=== PATIENT | female | born 1950 | race Caucasian/White ===

== ENCOUNTER 2019-09-22 18:43 | Emergency (ER) | payer MEDICARE, MEDICAID ==
[~2019-09-22] VITALS: Ht 162.6 cm; Wt 82.6 kg
[2019-09-22 19:30] VITALS: BP_SYST 136
--- NOTE | 2019-09-22 22:31 | NUR ---
Pt ambulatory to bed 4 for evaluation
--- NOTE | 2019-09-22 22:45 | NUR ---
Pt brought in by family member. Pt awake, alert, oriented x4. Pt states that she had been having lowe blood sugar on and off throughout the day. Pt states that she has been eating meals with no increase in blood sugar. Pt states she is mildly fatigued, but no syncope dizziness, nausea, vomiting. Pt also denies chest pain, shortness of breath or any other medical complaint. Skin signs are warm and dry. Pt resting in ED bed comfortably, no acute distress at this time. VSS
--- NOTE | 2019-09-22 23:00 | NUR ---
ER at bedside examining patient.
[2019-09-22 23:48] LABS: HEMOGLOBIN 12.4 g/dL (12.0-16.0)
[2019-09-22 23:52] LABS: HEMATOCRIT 38.2 % (36-48); MEAN CORPUSCULAR HEMOGLOBIN 29 pg (27-31); MEAN CORPUSCULAR HGB CONC 33 % (32-36); MEAN CORPUSCULAR VOLUME 89 fL (79.0-98.0); PLATELET COUNT (AUTO) 242 K/uL (130-430); RED BLOOD CELL COUNT(AUTO) 4.28 MIL/uL (4.2-6.2); RED CELL DISTRIBUTION WIDTH 14.9 % (9.0-15.0); WHITE BLOOD COUNT (AUTO) 14.1 K/uL (4.8-10.8)
[2019-09-22 23:56] LABS: CALCIUM 8.6 mg/dL (8.4-11.0); CREATININE 0.65 mg/dL (0.55-1.30); POTASSIUM 4.3 mmol/L (3.5-5.1)
--- NOTE | 2019-09-23 | NUR ---
Pt resting in ED bed. No acute distress.
[2019-09-23 00:02] LABS: TOTAL BILIRUBIN 0.2 mg/dL (0.0-1.0)
[2019-09-23 00:31] LABS: ATYPICAL LYMPHOCYTES % 1 % (0-0); BAND % (MANUAL) 0 % (0-6); BASOPHILS % (MANUAL) 0 % (0-2); EOSINOPHILS % (MANUAL) 0 % (0-7); LYMPHOCYTES % (MANUAL) 61 % (20-46); MONOCYTES % (MANUAL) 3 % (0-11)
[2019-09-23 00:57] LABS: BILIRUBIN,URINE NEGATIVE (NEGATIVE); CLARITY/URINE CLEAR (CLEAR); COLOR,URINE YELLOW (YELLOW); GLUCOSE,URINE NEGATIVE (NEGATIVE); KETONES,URINE NEGATIVE (NEGATIVE); LEUKOCYTE ESTERASE ,URINE NEGATIVE (NEGATIVE); NITRITE, URINE NEGATIVE (NEGATIVE); PH,URINE 5.5 (5.0-8.0); PROTEIN URINE NEGATIVE (NEGATIVE); UROBILINOGEN,URINE 0.2 (0.2-1.0)
[2019-09-23 01:05] LABS: BLOOD, URINE TRACE (NEGATIVE)
[2019-09-23 01:09] LABS: BACTERIA,URINE FEW /HPF (None Seen); CALCIUM OXALATE CRYSTALS,UR 30-50 /HPF (None Seen); WBC,URINE 0-3 /HPF (0-3)
[2019-09-23 01:50] VITALS: BP_SYST 136
--- NOTE | 2019-09-23 01:50 | NUR ---
Patient given written and verbal discharge instructions and verbalizes understanding. ER MD discussed with patient the results and treatment provided. Patient in stable condition. ID arm band removed. No RX given. Patient educated on pain management and to follow up with PMD. Pain Scale 0/10. Opportunity for questions provided and answered.
== END 2019-09-23 01:50 | disposition home or self-care (01) ==
LOC: SED 18:43
DX: E11.649 Type 2 diabetes mellitus with hypoglycemia without coma (principal); I10 Essential (primary) hypertension
CPT/HCPCS: 36415; 80053; 81000-TC; 82962; 83690-TC; 85007; 85027; 99283